=== PATIENT | female | born 1950 | race Caucasian/White ===

== ENCOUNTER 2016-07-26 13:34 | Emergency (ER) | payer OTHER ==
--- NOTE | 2016-07-26 13:55 | EDPHY ---
H & P Time Seen by Provider: 07/26/16 13:53 HPI/ROS: Chief complaint. Dizzy HPI. 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 She was squeezing through some heavy metal sections of fencing that were stacked up against the [place]. As she got through she pulled 5 sections of heavy metal fencing over on top of her. The weighted a fencing pushed her over striking her in the right upper lip but pushing her head back and she struck her head against the ground. She did not lose consciousness though was quite dazed and had a lie there for a few minutes before she could try to get up. Since then she has been dizzy and has had had a headache. Her dizziness seems to be worse when she is up and walking. His no visual changes. No neck or back pain. No chest pain, shortness of breath, abdominal pain. She does complain of pain to the left anterior thigh as well. ROS Constitutional. no fever/chills, no weakness Eyes. no problems with vision ENT. no sore throat, no nasal drainage; bump to the back of her head. Swelling to the right upper lip with bruising Cardiovascular. no chest pain Respiratory. no shortness of breath, no cough Abdominal. no abdominal pain, no nausea/vomiting, no diarrhea . no problems urinating MS. no calf pain/swelling, no neck/back pain, no joint pain Skin. no rash Lymph. no swollen glands Neuro. Headache and dizziness Past Medical/Surgical History: Past medical history right breast cancer with lumpectomy, hypothyroid Social History: Single, nonsmoker, no alcohol Smoking Status: Never smoked Physical Exam: General Appearance: Alert pleasant well-developed female mild distress vital signs are stable. Eyes: Pupils equal and round no pallor or injection. ENT, no hemotympanum or Ferrari sign. There is bruising to the right upper and lower lift with abrasion on the inner right upper lip. No dental trauma or malocclusion. Patient has hematoma to the posterior left occiput Respiratory: There are no retractions, lungs are clear to auscultation. Cardiovascular: Regular rate and rhythm. Gastrointestinal: Abdomen is soft and nontender, no masses, bowel sounds normal. Neurological: Awake and alert, sensory and motor exams grossly normal. Skin: Warm and dry, no rashes. Musculoskeletal: Neck is supple nontender. Extremities symmetrical, full range of motion. Tenderness and mild swelling without bruising or laceration to the left anterior thigh Psychiatric: Patient is oriented X 3, there is no agitation. Constitutional: Initial Vital Signs Temperature (C) 36.6 C 07/26/16 13:40 Heart Rate 67 07/26/16 13:40 Respiratory Rate 18 07/26/16 13:40 Blood Pressure 140/77 H 07/26/16 13:40 O2 Sat (%) 99 07/26/16 13:40 O2 Delivery Mode Room Air Allergies/Adverse Reactions: codeine [Codeine] Allergy (Verified 07/26/16 13:51) SHELLFISH Allergy (Unknown, Uncoded 01/09/11 12:56) Vomiting Home Medications: Medication Instructions Recorded Thyroid,Pork [ARMOUR THYROID] 15 mg PO DAILY06 09/04/11 Ondansetron Odt [Zofran Odt] 4 mg PO Q4PRN PRN #4 tab 07/26/16 PARoxetine HCL [Paxil 10mg (*)] 10 mg PO DAILY 07/26/16 Medical Decision Making - Diagnostics Imaging Results: Imaging Impressions Head CT 07/26/16 15:03 Impression: 1. Normal CT brain without contrast. 2. No epidural or subdural hematoma. Findings and recommendations discussed with Emergency Department physician, TULIO ZARATE at 15:26 hour, 07/26/2016. Final report concurs with initial preliminary interpretation. Head CT reviewed by me and discussed with Dr. Ibarra is normal. No evidence for fracture or intracranial bleeding Procedures: IV normal saline CT head is ordered as the patient did experience trauma and mechanism is concerning for skull fracture intracranial injury. She has continued to be symptomatic with dizziness and headache after the trauma though she apparently did not lose consciousness. ED Course/Re-evaluation: Re-evaluation 3:30 p.m.. Patient is stable. She does not want further workup but really came in for head CT. She and I discussed the possibility of other etiologies of her dizziness besides concussion. She understands this however declines EKG and blood work. She and I discussed risks and benefits of this. She is encouraged to return at any point for worsening symptoms. She expresses understanding and agreement Differential Diagnosis: I considered closed head injury including skull fracture intracranial bleeding after trauma. Other etiologies of dizziness or considered such as electrolyte abnormality, arrhythmia, acute coronary syndrome. - Data Points Medications Given: Discontinued Medications Sodium Chloride (Ns) 1,000 mls @ 0 mls/hr IV ONCE ONE; Wide Open PRN Reason: Protocol Stop: 07/26/16 15:04 Last Admin: 07/26/16 15:36 Dose: Not Given Departure - Departure Disposition: Home, Routine, Self-Care Clinical Impression: Dizziness Head contusion Qualifiers: Encounter type: initial encounter Contusion of head detail: scalp Qualified Code(s): S00.03XA - Contusion of scalp, initial encounter Condition: Good Instructions: Head Injury (ED) Additional Instructions: Ice to sore areas of head, face, thigh next 24 hours. Tylenol 1000 mg every 4- 6 hours, ibuprofen 400-600 mg every 6 hours as needed for headache. Return for worsening dizziness, chest discomfort, trouble breathing. Zofran if needed for nausea and vomiting Recheck in 1-2 days for continuing symptoms Referrals: Nina Garcia MD [Primary Care Provider] - 2-3 days, if not improved Prescriptions: Ondansetron Odt [Zofran Odt] 4 mg PO Q4PRN PRN #4 tab PRN Reason: Nausea/Vomiting, Use 1st
[2016-07-26] MEDS ORDERED: NS 1,000 ML IV ONE (15:03)
[2016-07-26] MEDS ORDERED: ONDANSETRON DISINTEGRATING 4 MG TAB ONE (15:33)
[2016-07-26] MEDS ORDERED: ONDANSETRON DISINTEGRATING 4 MG TAB PO ONE (15:37)
[2016-07-26 15:58] VITALS: BP 132/76; PULSE 78; RESP 15; TEMP 98.4; O2SAT 97
== END 2016-07-26 15:52 | disposition home or self-care (01) ==
DX: S00.03XA Contusion of scalp, initial encounter (principal); R42 Dizziness and giddiness; Z85.3 Personal history of malignant neoplasm of breast; W22.8XXA Striking against or struck by other objects, initial encounter

== ENCOUNTER → 2016-12-23 | Outpatient (CLI) | payer OTHER | LOC: FIMAGING 09:49 | PROVIDERS: ATTEND Internal Medicine Hematology & Oncology | DX: Z12.31 Encounter for screening mammogram for malignant neoplasm of breast (principal); Z13.820 Encounter for screening for osteoporosis; M85.89 Other specified disorders of bone density and structure, multiple sites; Z85.3 Personal history of malignant neoplasm of breast; Z80.3 Family history of malignant neoplasm of breast | CPT/HCPCS: G0202 ==

== ENCOUNTER → 2017-01-31 | Outpatient (CLI) | payer OTHER | LOC: FIMAGING 14:05 | PROVIDERS: ATTEND Physical Medicine & Rehabilitation | DX: M41.84 Other forms of scoliosis, thoracic region (principal); M43.8X4 Other specified deforming dorsopathies, thoracic region; M85.80 Other specified disorders of bone density and structure, unspecified site ==

== ENCOUNTER 2017-02-18 14:57 | Observation (INO) | payer OTHER ==
[2017-02-18] MEDS ORDERED: HYDROmorphONE/DILAUDID 1 MG/ML INJ IVP ONE (15:28)
[2017-02-18] MEDS ORDERED: ONDANSETRON 4 MG/2 ML VIAL IVP ONE (15:28)
--- NOTE | 2017-02-18 15:31 | EDPHY ---
H & P Time Seen by Provider: 02/18/17 15:22 HPI/ROS: CHIEF COMPLAINT: Right-sided back pain HISTORY OF PRESENT ILLNESS: Patient was bucked off her horse at 1:30 p.m. and landed on the ground. She was wearing a helmet did not lose consciousness. No headache or neck pain or weakness or numbness in extremities. She presents with right-sided posterior chest pain which is severe and much worse with any movement or deep breathing. It does not radiate. Not associated with hemoptysis or hematuria. She did on un-tack her horse before calling her daughter who brought her in. REVIEW OF SYSTEMS: Eye: No double vision ENT: No ear or throat symptoms Cardiac: No palpitations or syncope Pulmonary: Painful to take a deep breath Abdomen: No vomiting or abdominal pain Musculoskeletal: No extremity pain. Has a history of previous back pain, nothing new. Pretty severe right-sided posterior chest pain. Skin: No lacerations Neuro: no headache or weakness or numbness in extremities Constitutional: no fever : No hematuria A comprehensive 10 point review of systems is otherwise negative aside from elements mentioned in the history of present illness. PAST MEDICAL HISTORY: Include rest cancer and back surgery Social history: Here with her daughter, no alcohol General Appearance: Alert and conversant, cooperative. Eyes: No scleral icterus. Extraocular motion intact and pupils equal and reactive. ENT, Mouth: Normal mucous membranes. Respiratory: Splinting with decreased breath sounds bilaterally. Cardiovascular: Regular rate and rhythm. Gastrointestinal: Abdomen is soft and non tender. Specifically nontender over both liver and spleen. Neurological: Alert, face symmetric, normal motor and sensory in extremities. Skin: Warm and dry, no rashes. Musculoskeletal: Patient has tenderness to palpation over the entirety posterior chest. She is not tender on any extremity and she can lift the right arm over her head. She does not have midline cervical thoracic or lumbar spine tenderness to palpation. She does have right CVA tenderness. Psychiatric: Not agitated. Emergency Department course/MDM: Plan for x-ray and IV Dilaudid 1 mg. Urinalysis. 1558: Chest x-ray personally interpreted as 50% right pneumothorax, trauma surgery consulted. 1635: Chest tube placed by surgeon, plan to admit to the hospital for observation. Smoking Status: Never smoked Constitutional: Initial Vital Signs Temperature (C) 36.4 C 02/18/17 15:13 Heart Rate 78 02/18/17 15:13 Respiratory Rate 18 02/18/17 15:13 Blood Pressure 116/77 02/18/17 15:13 O2 Sat (%) 94 02/18/17 15:13 O2 Delivery Mode Room Air Allergies/Adverse Reactions: codeine [Codeine] Allergy (Verified 02/18/17 15:12) SHELLFISH Allergy (Unknown, Uncoded 01/09/11 12:56) Vomiting Home Medications: Medication Instructions Recorded Thyroid,Pork [ARMOUR THYROID] 15 mg PO DAILY06 09/04/11 Ondansetron Odt [Zofran Odt] 4 mg PO Q4PRN PRN #4 tab 07/26/16 PARoxetine HCL [Paxil 10mg (*)] 10 mg PO DAILY 07/26/16 Nabumetone 02/18/17 Medical Decision Making - Diagnostics Imaging Results: Chest x-ray personally interpreted shows large right-sided pneumothorax. Differential Diagnosis: Differential considered including but not limited to rib fracture, pneumothorax , hemothorax, chest wall contusion, aortic injury. Consult/Admit Bed Type: [facility] 1605 here at 1610 - Data Points Laboratory Results: Laboratory Results 02/18/17 15:30 02/18/17 15:30 02/18/17 02/18/17 15:30 15:30 WBC 14.94 10^3/uL H 10^3/uL (3.80-9.50) RBC 5.19 10^6/uL 10^6/uL (4.18-5.33) Hgb 15.1 g/dL g/dL (12.6-16.3) Hct 44.9 % % (38.0-47.0) MCV 86.5 fL fL (81.5-99.8) MCH 29.1 pg pg (27.9-34.1) MCHC 33.6 g/dL g/dL (32.4-36.7) RDW 13.1 % % (11.5-15.2) Plt Count 280 10^3/uL 10^3/uL (150-400) MPV 10.0 fL fL (8.7-11.7) Neut % (Auto) 84.4 % H % (39.3-74.2) Lymph % (Auto) 8.2 % L % (15.0-45.0) [place] % (Auto) 5.8 % % (4.5-13.0) Eos % (Auto) 0.3 % L % (0.6-7.6) Baso % (Auto) 0.4 % % (0.3-1.7) Nucleat RBC Rel Count 0.0 % % (0.0-0.2) Absolute Neuts (auto) 12.61 10^3/uL H 10^3/uL (1.70-6.50) Absolute Lymphs (auto) 1.23 10^3/uL 10^3/uL (1.00-3.00) Absolute Monos (auto) 0.87 10^3/uL H 10^3/uL (0.30-0.80) Absolute Eos (auto) 0.04 10^3/uL 10^3/uL (0.03-0.40) Absolute Basos (auto) 0.06 10^3/uL 10^3/uL (0.02-0.10) Absolute Nucleated RBC 0.00 10^3/uL 10^3/uL (0-0.01) Immature Gran % 0.9 % % (0.0-1.1) Immature Gran # 0.13 10^3/uL H 10^3/uL (0.00-0.10) Sodium 144 mEq/L mEq/L (134-144) Potassium 4.2 mEq/L mEq/L (3.5-5.2) Chloride 108 mEq/L mEq/L (97-110) Carbon Dioxide 24 mEq/l mEq/l (22-31) Anion Gap 12 mEq/L mEq/L (8-16) BUN 18 mg/dL mg/dL (7-23) Creatinine 0.7 mg/dL mg/dL (0.6-1.0) Estimated GFR > 60 Glucose 104 mg/dL H mg/dL (70-100) Calcium 9.9 mg/dL mg/dL (8.5-10.4) Medications Given: Discontinued Medications Hydromorphone HCl (Dilaudid) 1 mg IVP EDNOW ONE Stop: 02/18/17 15:29 Last Admin: 02/18/17 15:36 Dose: 1 mg Ondansetron HCl (Zofran) 4 mg IVP EDNOW ONE Stop: 02/18/17 15:29 Last Admin: 02/18/17 15:36 Dose: 4 mg Departure - Departure Disposition: [facility] Inpatient Acute Clinical Impression: Pneumothorax, acute Condition: Good Instructions: Traumatic Pneumothorax (ED) Referrals: ALBAN MCCANN [Other] - As per Instructions Ev Palacio MD [Medical Doctor] - As per Instructions
[2017-02-18 16:03] LABS: PLATELET COUNT 280 10^3/uL (150-400)
[2017-02-18] MEDS ORDERED: LIDOCAINE 1% 300 MG/30 ML SDV ONE (16:08)
[2017-02-18] MEDS ORDERED: oxyCODONE IR 5 MG TAB PO PRN (16:55)
[2017-02-18] MEDS ORDERED: ONDANSETRON 4 MG/2 ML VIAL IVP PRN (16:55)
[2017-02-18] MEDS ORDERED: NABUMETONE 500 MG TAB PO PRN (18:04)
[2017-02-18] MEDS ORDERED: ACETAMINOPHEN 325 MG TAB PO PRN (18:05)
[2017-02-18 18:11] VITALS: RESP 16
[2017-02-18] MEDS: oxyCODONE IR 5 MG TAB PO PRN ×2 (18:16→21:18)
--- NOTE | 2017-02-18 21:08 | GHP ---
[f rep st] HISTORY AND PHYSICAL DATE OF ADMISSION: 02/18/2017 REQUESTING PHYSICIAN: Dr. Nathan Hoffman REASON FOR CONSULTATION: Right pneumothorax. 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 She was wearing a helmet. She did not lose consci ousness. She did develop severe right posterior chest pain, worse with movement and deep breathing. She was able to untack her horse and call her daughter and was then brought to the emergency room. A chest x-ray showed large right-sided pneumothorax. PAST MEDICAL HISTORY: Breast cancer. PAST SURGICAL HISTORY: Back surgery, lumpectomy. SOCIAL HISTORY: She denies alcohol. She denies tobacco use. REVIEW OF SYSTEMS: Ten-point review of systems negative except per HPI. PHYSICAL EXAMINATION: GENERAL: Pleasant, well-nourished, well-groomed woman sitting up on gurney. HEENT: Normocephalic. No gross hearing deficits. Mucous membranes moist. Pupils equal and round. No scleral icterus. LUNGS: Decreased on right side. No increased work of breathing. CARDIAC: Re gular rate. ABDOMEN: Bowel sounds present. EXTREMITIES: No signs of trauma. MUSCULOSKELETAL: 5/ 5 strength, upper and lower extremities. NEURO: Grossly intact. PSYCH: Mood and affect normal. Results reviewed. I personally reviewed the results of her chest x-ray and see a large right-sided p neumothorax. IMPRESSION AND PLAN: Corinna is a 66-year-old woman with a right pneumothorax. I will place a ches t tube. PROCEDURE NOTE: Patient was consented for the procedure. A time out was performed. Her right chest was prepped with chlorhexidine and draped. I infiltrated the area with 3 cc of 1% lidocaine. I mad e a small ericka in the skin. I inserted the Pneumocath catheter with a gush of air. I sutured this i nto place. A dressing was applied. Post-procedure chest x-ray showed complete resolution of the pne umothorax. She tolerated the procedure well. /[id number]/MODL
[2017-02-19] MEDS: oxyCODONE IR 5 MG TAB PO PRN (05:08)
--- NOTE | 2017-02-19 08:28 | SOAPPROG ---
SOAP Progress Note Assessment/Plan: Assessment: 66 yo s/p fall off horse. Pneumothorax resolved Chest tube pulled Repeat CXR at 10 am Could have non displaced rib fractures - not obvious on chest x ray but tender on lateral rib cage Likely home later this am Regular diet Incentive spirometer S: Lateral chest pain O: General: Pleasant, well-nourished and well-groomed woman lying in bed HENT: Normocephalic, no gross hearing deficits, mucous membranes moist, pupils equal and round, no scleral icterus Lungs: Clear to auscultation bilaterally, No increased work of breathing. Chest tube removed without difficulty Cardiac: Regular rate, no peripheral edema Skin: Warm and dry. No ecchymosis MSK: Normal gait and normal nails. Tender on right lateral chest wall/ Psych: Mood and affect normal Neuro: Grossly intact Plan: 02/19/17 08:27 Objective: Vital Signs Temp Pulse Resp BP Pulse Ox 36.7 C 74 16 97/59 L 96 02/19/17 04:00 02/19/17 04:00 02/19/17 04:00 02/19/17 04:00 02/19/17 04:00 02/18/17 02/19/17 02/20/17 05:59 05:59 05:59 Intake Total 50 Balance 50 ICD10 Worksheet Patient Problems: Problems Problem Status Onset Pneumothorax, acute Acute
[2017-02-19 08:52] VITALS: TEMP 98.4
[2017-02-19] MEDS ORDERED: PARoxetine HCL 20 MG TAB PO SCH (09:00)
[2017-02-19] MEDS ORDERED: THYROID 60 MG TAB PO SCH (10:00)
--- NOTE | 2017-02-19 11:36 | ASMTCMCOM ---
CM Note CM Note Notes: Spoke w/pt, sister coming to stay with her to help. No other needs identified, pt will dc home when medically stable, CM available for any changes. DC Plan: Home Date Signed: 02/19/2017 11:36 AM Electronically Signed By:Sunshine Sierra RN
[2017-02-19 12:02] VITALS: BP 106/67; PULSE 73; O2SAT 93
--- NOTE | 2017-02-19 16:58 | ASDISCHSUM ---
Discharge Information Plan Status:Home with No Needs Medically Cleared to Leave: Discharge Date:02/19/2017 01:51 PM CM D/C Disposition:Home, Routine, Self-Care ADT D/C Disposition:Home, Routine, Self-Care Projected Discharge Date:02/19/2017 01:51 PM Transportation at D/C:Family Discharge Delay Reason: Follow-Up Date:02/19/2017 01:51 PM Discharge Slot: Final Diagnosis: Placement Information Patient Contact Information Contact Name:NOHELIANICHELLE Relationship:Daughter Address: City:[facility] Alternate Phone: [facility]/Zip Code:[place] [address] Email: Financial Information Financial Class:HMO and PPO Plans Primary Plan Desc:INSURANCE TPA Primary Plan Number:[id number] Secondary Plan Desc: Secondary Plan Number: Assessment Information LACE LACE Length of stay for Answers: 1 day current admission Acuity / Level of Care Answers: Was the patient admitted to hospital via the emergency department? Yes: Emergency dept visits in Answers: 0 last 6 months Score: 4 Date Signed: 02/19/2017 11:34 AM Electronically Signed By:Sunshine Sierra RN [facility] CM Progress Note CM Note CM Note Notes: Spoke w/pt, sister coming to stay with her to help. No other needs identified, pt will dc home when medically stable, CM available for any changes. DC Plan: Home Date Signed: 02/19/2017 11:36 AM Electronically Signed By:Sunshine Sierra RN Intervention Information
== END 2017-02-19 13:51 | disposition home or self-care (01) ==
LOC: F3E 17:36
PROVIDERS: ADMIT Surgery; ATTEND Surgery
PROC: 0W9900Z Drainage of Right Pleural Cavity with Drainage Device, Open Approach (ICD-10-PCS; principal; 2017-02-18)
DX: S27.0XXA Traumatic pneumothorax, initial encounter (principal); V80.018A Animal-rider injured by fall from or being thrown from other animal in noncollision accident, initial encounter; Y93.52 Activity, horseback riding; Y92.007 Garden or yard of unspecified non-institutional (private) residence as the place of occurrence of the external cause; Y99.8 Other external cause status; Z85.3 Personal history of malignant neoplasm of breast
CPT/HCPCS: 32551; 71045; 71046; 96374; 96375; 99285; G0378; J1170; J2405

== ENCOUNTER → 2017-08-21 | Outpatient (CLI) | payer OTHER, MEDICARE | LOC: FIMAGING 12:56 | PROVIDERS: ATTEND Internal Medicine Hematology & Oncology | DX: N63.20 Unspecified lump in the left breast, unspecified quadrant (principal); Z85.3 Personal history of malignant neoplasm of breast; Z98.890 Other specified postprocedural states ==

== ENCOUNTER → 2017-09-08 | Outpatient (CLI) | payer OTHER, MEDICARE ==
[~2017-09-08] MED LIST: GADOBUTROL 10 ML VIAL IVP ONE
== END ==
LOC: FIMAGING 13:16
PROVIDERS: ATTEND Internal Medicine Hematology & Oncology
DX: D24.1 Benign neoplasm of right breast (principal); Z85.3 Personal history of malignant neoplasm of breast
CPT/HCPCS: 0159T; A9585; C8908

== ENCOUNTER → 2018-03-04 | Outpatient (CLI) | payer OTHER, MEDICARE | LOC: FIMAGING 12:29 | PROVIDERS: ATTEND Internal Medicine Hematology & Oncology | DX: Z12.31 Encounter for screening mammogram for malignant neoplasm of breast (principal); Z80.3 Family history of malignant neoplasm of breast ==

== ENCOUNTER 2018-07-31 12:26 | Emergency (ER) | payer OTHER, MEDICARE | END 2018-07-31 13:10 | disposition left against medical advice (07) ==